=== PATIENT | male | born 1960 | race Caucasian/White ===

== ENCOUNTER 2017-10-22 14:33 | Emergency (ER) | payer OTHER ==
[~2017-10-22] VITALS: Ht 175.3 cm; Wt 75.0 kg
[~2017-10-22 14:33] MED LIST: OXYC-145 PO; VALA100027 PO
[2017-10-22] MEDS ORDERED: HYDR-569 PO (16:39)
[2017-10-22 16:59] VITALS: BP 150/89
== END 2017-10-22 17:08 | disposition home or self-care (01) ==
LOC: ER 14:34
DX: S46.911A Strain of unspecified muscle, fascia and tendon at shoulder and upper arm level, right arm, initial encounter (principal); Z98.890 Other specified postprocedural states; Z79.899 Other long term (current) drug therapy; W23.0XXA Caught, crushed, jammed, or pinched between moving objects, initial encounter; Y93.89 Activity, other specified; Y92.89 Other specified places as the place of occurrence of the external cause; Y99.8 Other external cause status
CPT/HCPCS: 73030; 99284; A4565